=== PATIENT | female | born 1945 | race Caucasian/White ===

== ENCOUNTER 2020-01-07 05:37 | Outpatient (CLI) | payer MEDICARE, OTHER ==
[2020-01-08 12:42] LABS: SARS-CoV-2 MS2 Positive; SARS-CoV-2 N Gene Negative; SARS-CoV-2 S Gene Negative; SARS-CoV-2 orf1ab Negative
== END 2020-01-07 05:38 | disposition home or self-care (01) ==
LOC: LABBT 05:37
PROVIDERS: ATTEND Internal Medicine Gastroenterology
DX: Z01.812 Encounter for preprocedural laboratory examination (principal); Z11.59 Encounter for screening for other viral diseases; Z86.010 Personal history of colon polyps; Z80.0 Family history of malignant neoplasm of digestive organs
CPT/HCPCS: 87635; U0003

== ENCOUNTER 2020-01-09 11:52 | Day surgery (SDC) | payer MEDICARE, OTHER ==
[2020-01-06 11:20] VITALS: BMI 51.2
[~2020-01-09 11:52] MED LIST: Lidocaine 1% PF 5 ML VIAL ONE; PROPOFOL 200 MG/20 ML VIAL ONE
--- NOTE | 2020-01-09 21:01 | OP ---
DATE OF PROCEDURE: 01/09/2020 PRIMARY CARE PHYSICIAN: Dr. Scottie Woodruff. PROCEDURES PERFORMED: Colonoscopy with biopsy and snare polypectomy. PREPROCEDURE DIAGNOSIS: History of colon polyps. POSTPROCEDURE DIAGNOSES: 1. Exam to cecum; good bowel preparation. 2. Three diminutive sessile polyps in the cecum and ascending colon, removed by cold snare technique. 3. 8 mm x 3 mm thickened fold versus flat polyp in the proximal transverse colon , biopsied. 4. Mild sigmoid diverticulosis. 5. Small internal hemorrhoids. 6. Otherwise normal colonoscopy. DESCRIPTION OF PROCEDURE: Written informed consent was obtained. The patient was brought to the endoscopy suite. Total intravenous anesthesia was administered by Mr. Donaldo Vogel CRNA. The patient was placed in the left lateral decubitus position. A digital rectal exam showed small external hemorrhoids. The Pentax video colonoscope was inserted through the anal canal and advanced under direct visualization to the cecum. Position in the cecum was verified by clear identification of the appendiceal orifice and the ileocecal valve. The quality of the bowel preparation was good. Endoscopic findings revealed a mild diffuse redundancy of the entire colon. Several diverticular orifices were noted in the sigmoid colon. There was no evidence of diverticular hemorrhage or infection. In the proximal transverse colon, one to two folds distal to the hepatic flexure, an 8 mm x 3 mm edematous fold was identified. Because of the nearly translucent appearance of the tissue, it was difficult to distinguish if this lesion represented a thickened fold or a flat polyp at the edge of the fold. Biopsies were obtained for histology. In the mid ascending colon, a small 3 to 4 mm sessile polyp was identified and removed by cold snare technique. Also in the mid ascending colon , a 4-5 mm sessile polyp was removed by cold snare. Another 3 mm sessile polyp was identified in the cecum, at the edge of the appendiceal orifice. It too was removed by cold snare technique. All polyp specimens were recovered and submitted to Pathology. No other significant findings were noted in the colon. In the rectum, a retroflexed exam demonstrated small internal hemorrhoids. The colon was decompressed as the colonoscope was completely removed from the patient. There were no immediate complications. She was transferred to the Day Stay surgery area for postprocedure monitoring. RECOMMENDATIONS: 1. Await histology results. 2. Ask the patient to call me in one week for histology results. 3. Resume previous diet and medications. 4. Pending pathology results, I would recommend repeating a colonoscopy in 3 to 5 years. 5. Follow up with me in clinic as needed. Job ID: [id number] LOS
== END 2020-01-09 15:55 | disposition home or self-care (01) ==
LOC: SDC 11:52
PROVIDERS: ATTEND Internal Medicine Gastroenterology
PROC: 0DBK8ZZ Excision of Ascending Colon, Via Natural or Artificial Opening Endoscopic (ICD-10-PCS; principal; 2020-01-09)
PROC: 0DBH8ZZ Excision of Cecum, Via Natural or Artificial Opening Endoscopic (ICD-10-PCS; 2020-01-09)
PROC: 0DBL8ZX Excision of Transverse Colon, Via Natural or Artificial Opening Endoscopic, Diagnostic (ICD-10-PCS; 2020-01-09)
DX: Z12.11 Encounter for screening for malignant neoplasm of colon (principal); D12.0 Benign neoplasm of cecum; K63.5 Polyp of colon; K57.30 Diverticulosis of large intestine without perforation or abscess without bleeding; K64.8 Other hemorrhoids; I10 Essential (primary) hypertension; E07.9 Disorder of thyroid, unspecified; E66.01 Morbid (severe) obesity due to excess calories; Z68.43 Body mass index [BMI] 50.0-59.9, adult; Z79.899 Other long term (current) drug therapy; Z80.0 Family history of malignant neoplasm of digestive organs; Z86.010 Personal history of colon polyps; Z88.0 Allergy status to penicillin
CPT/HCPCS: 88305; J2001; J2704

== ENCOUNTER 2021-04-29 08:56 | Outpatient (CLI) | payer MEDICARE | END 2021-04-29 08:57 | disposition home or self-care (01) | LOC: BICMAMMO 08:56 | PROVIDERS: ATTEND Family Medicine | DX: Z13.820 Encounter for screening for osteoporosis (principal); Z78.0 Asymptomatic menopausal state; M85.852 Other specified disorders of bone density and structure, left thigh | CPT/HCPCS: 77080 ==

== ENCOUNTER 2023-07-25 10:55 | Day surgery (SDC) | payer MEDICARE ==
[2023-07-24 13:17] VITALS: BMI 44.6
[2023-07-25] MEDS ORDERED: PROPOFOL 200 MG/20 ML VIAL ONE (12:51)
[2023-07-25] MEDS ORDERED: Lidocaine 1% PF 5 ML VIAL ONE (12:51)
[2023-07-25] MEDS ORDERED: ePHEDrine Sulfate 50 MG/10 ML VIAL ONE (13:00)
== END 2023-07-25 14:55 | disposition home or self-care (01) ==
LOC: SDC 10:55
PROVIDERS: ATTEND Internal Medicine Gastroenterology
PROC: 0DBK8ZZ Excision of Ascending Colon, Via Natural or Artificial Opening Endoscopic (ICD-10-PCS; principal; 2023-07-25)
PROC: 0DBL8ZZ Excision of Transverse Colon, Via Natural or Artificial Opening Endoscopic (ICD-10-PCS; 2023-07-25)
DX: Z12.11 Encounter for screening for malignant neoplasm of colon (principal); D12.2 Benign neoplasm of ascending colon; D12.3 Benign neoplasm of transverse colon; K57.30 Diverticulosis of large intestine without perforation or abscess without bleeding; K64.8 Other hemorrhoids; I10 Essential (primary) hypertension; E66.01 Morbid (severe) obesity due to excess calories; E07.9 Disorder of thyroid, unspecified; Z90.710 Acquired absence of both cervix and uterus; Z90.49 Acquired absence of other specified parts of digestive tract; Z87.59 Personal history of other complications of pregnancy, childbirth and the puerperium; Z79.82 Long term (current) use of aspirin; Z86.010 Personal history of colon polyps; Z79.890 Hormone replacement therapy; Z88.0 Allergy status to penicillin; Z79.899 Other long term (current) drug therapy; Z68.42 Body mass index [BMI] 45.0-49.9, adult
CPT/HCPCS: 88305; J2704

== ENCOUNTER 2024-07-24 13:09 | Emergency (ER) | payer MEDICARE ==
[2024-07-24 14:18] LABS: #Basophils 0.03 10x3/uL (0.0-0.2); %Basophils 0.5 % (0.0-1.0); %Eosinophils 3.3 % (0.0-10.0); %Lymphocytes 35.9 % (21.0-51.0); %Monocytes 6.6 % (0.0-10.0); Hematocrit 46.7 % (36.0-47.0); Mean Corpuscular HGB CONC 34.3 g/dL (32.0-36.0); Mean Corpuscular Hemoglobin 33.2 pg (27.0-31.0); Mean Corpuscular Volume 96.9 fL (78.0-98.0); Mean Platelet Volume 10.6 fL (7.4-10.4); Platelet Count 217 10x3/uL (130-400); RBC Distribution Width 13.7 % (11.5-14.5); Red Blood Cell (RBC) Count 4.82 mill/uL (4.20-5.40)
[2024-07-24 14:46] LABS: ALT (SGPT) 15 U/L (Less than 34); AST (SGOT) 41 U/L (11-34); Alkaline Phosphatase 70 U/L (40-110); Anion Gap 13 mmol/L (10-20); BUN (Urea Nitrogen) 13 mg/dL (9.8-20.1); Bilirubin, Total 1.5 mg/dL (0.3-1.2); Calc. Creatinine Clearance 0 mL/min (70-130); Calcium 9.4 mg/dL (7.8-10.44); Carbon Dioxide 29 mmol/L (23-31); Chloride 101 mmol/L (98-107); Estimated GFR 66; Globulin 3.3 g/dL (2.4-3.5); Glucose 97 mg/dL (83-110); Potassium 3.9 mmol/L (3.5-5.1); Protein, Total 7.3 g/dL (5.8-8.1); Sodium 139 mmol/L (136-145)
== END 2024-07-24 16:41 | disposition home or self-care (01) ==
LOC: ERS 13:09
DX: R00.1 Bradycardia, unspecified (principal); Z55.0 Illiteracy and low-level literacy; I10 Essential (primary) hypertension
CPT/HCPCS: 36415; 71045; 80053; 83735; 84484; 85025; 93005